=== PATIENT | female | born 1975 | race American Indian/Alaskan Native ===

== ENCOUNTER 2017-03-23 21:02 | Emergency (ER) | payer OTHER ==
[2017-03-23 21:05] VITALS: BMI 25.4
[2017-03-23 21:08] VITALS: BP 128/88; PULSE 89; RESP 16; TEMP 98.6; O2SAT 100
[2017-03-23] MEDS ORDERED: TDAP Vaccine 0.5 mL Syr IM ONE (22:27)
--- NOTE | 2017-03-23 22:28 | ED PDOC ---
Arrival/HPI <Eris Napier - Last Filed: 03/23/17 22:39> - General Historian: Patient - History of Present Illness Time/Duration: Prior to Arrival Symptom Onset: Sudden Symptom Course: Unchanged Activities at Onset: Light Context: Home <Caryl Pickett PA-C - Last Filed: 03/24/17 01:37> - General Chief Complaint: Abnormal Skin Integrity Time Seen by Provider: 03/23/17 22:27 - History of Present Illness Narrative History of Present Illness (Text): 03/23/17 22:27 41 year old female who presents to the Emergency department complaining of 3 lacerations to her right hand prior to arrival while opening a window. Patient denies any weakness/numbness/tingling in the extremity, decreased range of motion, other injuries, or any other complaints. (Caryl Pickett PA-C) Past Medical History - Provider Review Nursing Documentation Reviewed: Yes - Infectious Disease Hx of Infectious Diseases: None - Psychiatric Hx Psychophysiologic Disorder: No Hx Anxiety: No Hx Bipolar Disorder: No Hx Depression: No Hx Emotional Abuse: No Hx Hallucinations: No Hx Panic Disorder: No Hx Post Traumatic Stress Disorder: No Hx Psychosis: No Hx Physical Abuse: No Hx Schizophrenia: No Hx Sexual Abuse: No Hx Substance Use: No - Surgical History Hx Cholecystectomy: Yes Other/Comment: fibroid tumor removal. - Anesthesia Hx Anesthesia: Yes Hx Anesthesia Reactions: No Hx Malignant Hyperthermia: No - Suicidal Assessment Feels Threatened In Home Enviroment: No <Caryl Pickett PA-C - Last Filed: 03/24/17 01:37> Family/Social History - Physician Review Nursing Documentation Reviewed: Yes Family/Social History: Unknown Family HX Smoking Status: Never Smoked Hx Alcohol Use: No Hx Substance Use: No <Caryl Pickett PA-C - Last Filed: 03/24/17 01:37> Allergies/Home Meds <Eris Napier - Last Filed: 03/23/17 22:39> <Caryl Pickett PA-C - Last Filed: 03/24/17 01:37> Allergies/Adverse Reactions: Allergies berries Allergy (Uncoded 02/22/15 14:41) ANAPHYLAXIS nuts Allergy (Uncoded 03/23/17 21:18) ANAPHYLAXIS tomato sauce Allergy (Uncoded 02/22/15 14:41) ANAPHYLAXIS Review of Systems - Physician Review All systems were reviewed & negative as marked: Yes - Review of Systems Constitutional: Normal Eyes: Normal ENT: Normal Respiratory: Normal. absent: SOB, Cough Cardiovascular: Normal. absent: Chest Pain Gastrointestinal: Normal. absent: Abdominal Pain, Diarrhea, Nausea, Vomiting Genitourinary Female: Normal Musculoskeletal: Normal. absent: Back Pain, Neck Pain Skin: Laceration Neurological: Normal Endocrine: Normal Hemo/Lymphatic: Normal Psychiatric: Normal <Caryl Pickett PA-C - Last Filed: 03/24/17 01:37> Physical Exam Vital Signs Reviewed: Yes Temperature: Afebrile Blood Pressure: Normal Pulse: Regular Respiratory Rate: Normal Appearance: Positive for: Well-Appearing, Non-Toxic, Comfortable Pain Distress: Mild Mental Status: Positive for: Alert and Oriented X 3 - Systems Exam Head: Present: Atraumatic, Normocephalic Pupils: Present: PERRL Extroacular Muscles: Present: EOMI Conjunctiva: Present: Normal Mouth: Present: Moist Mucous Membranes Neck: Present: Normal Range of Motion Upper Extremity: Present: Normal ROM, NORMAL PULSES, Neurovascularly Intact, Capillary Refill < 2s, Other (1 cm to laceration to proximal volar aspect of right 3rd digit, 2 cm laceration to volar aspect of right 2nd MCP, 2 cm L- shaped superficial laceration to volar aspect of right 1st MCP). No: Cyanosis, Edema, Tenderness, Swelling, Erythema, Deformity Lower Extremity: Present: Normal Inspection. No: Edema Neurological: Present: GCS=15, CN II-XII Intact, Speech Normal Skin: Present: Warm, Dry, Normal Color. No: Rashes Psychiatric: Present: Alert, Oriented x 3, Normal Insight, Normal Concentration , Anxious <Caryl Pickett PA-C - Last Filed: 03/24/17 01:37> Vital Signs Temp Pulse Resp BP Pulse Ox 03/23/17 21:02 98.6 F 89 16 128/88 100 Medical Decision Making <Eris Napier - Last Filed: 03/23/17 22:39> <Caryl Pickett PA-C - Last Filed: 03/24/17 01:37> ED Course and Treatment: 03/23/17 22:27 Impression: 41 year old female complaining of 3 lacerations to right hand prior to arrival. Differential Diagnosis included but are not limited to: laceration Plan: -- Laceration repair -- Tetanus vaccination -- Reassess and disposition Progress Notes: The wound is R hand. The wound was copiously irrigated with normal saline. The wound was prepped and draped in the normal sterile fashion. The wound was explored for foreign bodies and none were found. The wound was anesthetised using lidocaine. The edges were reapproximated using 5, 5-0 prolene sutures by [employer]. Bleeding was well controlled and the patient tolerated the procedure well. Clean dressing applied. Patient instructed on proper wound care. Advised to keep the wound clean, dry and covered. Instructed to follow up with primary care physician in 2 days without fail for wound check. Advised to have sutures removed after 7 days. Return to the emergency room at any time for any new or worsening symptoms. Patient states she fully agrees with and understands discharge instructions. States that she agrees with the plan and disposition. Verbalized and repeated discharge instructions and plan. I have given the patient opportunity to ask any additional questions. (Caryl Pickett PA-C) - Medication Orders Current Medication Orders: Discontinued Medications Tetanus/Reduced Diphtheria/Acell Pertussis (Boostrix Vaccine Inj) 0.5 ml IM .ONCE ONE Stop: 03/23/17 22:28 Last Admin: 03/23/17 23:10 Dose: 0.5 ml - PA / EXTRACTOR MACHINE OPERATOR / Resident Statement LATISHA has reviewed & agrees with the documentation as recorded. LATISHA has examined the patient and agrees with the treatment plan. <Eris Napier - Last Filed: 03/23/17 22:39> - PA / EXTRACTOR MACHINE OPERATOR / Resident Statement LATISHA has reviewed & agrees with the documentation as recorded. - Scribe Statement The provider has reviewed the documentation as recorded by the Scribe <Caryl Pickett PA-C - Last Filed: 03/24/17 01:37> - Scribe Statement Yanet Gale Provider Scribe Attestation: All medical record entries made by the Scribe were at my direction and personally dictated by me. I have reviewed the chart and agree that the record accurately reflects my personal performance of the history, physical exam, medical decision making, and the department course for this patient. I have also personally directed, reviewed, and agree with the discharge instructions and disposition. (Caryl Pickett PA-C) Disposition/Present on Arrival <Eris Napier - Last Filed: 03/23/17 22:39> - Present on Arrival Any Indicators Present on Arrival: No History of DVT/PE: No History of Uncontrolled Diabetes: No Urinary Catheter: No History of Decub. Ulcer: No History Surgical Site Infection Following: None - Disposition Have Diagnosis and Disposition been Completed?: Yes Disposition Time: 22:27 Patient Plan: Discharge <Caryl Pickett PA-C - Last Filed: 03/24/17 01:37> - Disposition Diagnosis: Hand laceration Disposition: HOME/ ROUTINE Condition: STABLE Discharge Instructions (ExitCare): Care For Your Stitches (ED), Laceration (ED) Print Language: ERITREAN Additional Instructions: Thank you for letting us take care of you today. You were treated for hand laceration. The emergency medical care you received today was directed at your acute symptoms. Have sutures removed after 7 days. Return to the Emergency Department if your symptoms worsen, do not improve, or if you have any other problems. Please contact your doctor in 2 days for re-evaluation and follow up. Bring any paperwork you were given at discharge with you along with any medications you are taking to your follow up visit. Our treatment cannot replace ongoing medical care by a primary care provider (PCP) outside of the emergency department. Thank you for allowing the [facility] team to be part of your care today. Referrals: Farhad Dixon MD [Primary Care Provider] - Follow up with primary Forms: Rosalind (Northern Irish), WORK NOTE
== END 2017-03-23 23:20 | disposition home or self-care (01) ==
LOC: ED 21:02
DX: S61.411A Laceration without foreign body of right hand, initial encounter (principal); W45.8XXA Other foreign body or object entering through skin, initial encounter; Z23 Encounter for immunization

== ENCOUNTER 2017-04-10 14:41 | Emergency (ER) | payer OTHER ==
[2017-04-10 15:07] VITALS: PULSE 99; RESP 18; TEMP 98.5; O2SAT 100; BMI 26.4
--- NOTE | 2017-04-10 15:22 | ED PDOC ---
Arrival/HPI - General Historian: Patient - History of Present Illness Time/Duration: > week Symptom Course: Unchanged <Jennifer Ford - Last Filed: 04/10/17 16:15> <Ti Boogie - Last Filed: 04/10/17 22:37> - General Chief Complaint: Finger,Hand,&Wrist Time Seen by Provider: 04/10/17 15:17 - History of Present Illness Narrative History of Present Illness (Text): 04/10/17 15:23 42F w/no sig PMH evaluated for swelling of right first digit. Pt reports that 2 wks ago, she cut her hand on a wine bottle, had sutures placed, which were removed by PMD a week ago. Pt is concerned that her 1st digit of her right hand is still swollen with pain upon flexion. Pt has not taken any medications, no alleviating factors identified. Pain is mild, aggravated by movement/flexion , non radiating. Pt is without other complaints. PMH: Denies PSH: cholecystectomy, fibroid excision x 3, endometriosis surgery All: Nuts SH: Social ETOH use, denies tobacco or illicit drug use PMD: Erickson Dixon (Jennifer Ford) Past Medical History - Provider Review Nursing Documentation Reviewed: Yes - Infectious Disease Hx of Infectious Diseases: None - Tetanus Immunization Tetanus Immunization: Up to Date - Past Medical History Past Medical History: No Previous - Psychiatric Hx Psychophysiologic Disorder: No Hx Anxiety: No Hx Bipolar Disorder: No Hx Depression: No Hx Emotional Abuse: No Hx Hallucinations: No Hx Panic Disorder: No Hx Post Traumatic Stress Disorder: No Hx Psychosis: No Hx Physical Abuse: No Hx Schizophrenia: No Hx Sexual Abuse: No Hx Substance Use: No - Surgical History Hx Cholecystectomy: Yes Other/Comment: fibroid tumor removal. - Anesthesia Hx Anesthesia: Yes Hx Anesthesia Reactions: No Hx Malignant Hyperthermia: No - Suicidal Assessment Feels Threatened In Home Enviroment: No <Jennifer Ford - Last Filed: 04/10/17 16:15> Family/Social History - Physician Review Nursing Documentation Reviewed: Yes Family/Social History: No Known Family HX Smoking Status: Never Smoked Hx Alcohol Use: Yes Frequency of alcohol use: Socially Hx Substance Use: No <Jennifer Ford - Last Filed: 04/10/17 16:15> Allergies/Home Meds <Jennifer Ford - Last Filed: 04/10/17 16:15> <Ti Boogie - Last Filed: 04/10/17 22:37> Allergies/Adverse Reactions: Allergies berries Allergy (Uncoded 02/22/15 14:41) ANAPHYLAXIS nuts Allergy (Uncoded 03/23/17 21:18) ANAPHYLAXIS tomato sauce Allergy (Uncoded 02/22/15 14:41) ANAPHYLAXIS Home Medications: Home Meds Medication Instructions Recorded Confirmed No Known Home Med 04/10/17 04/10/17 Review of Systems - Physician Review All systems were reviewed & negative as marked: Yes - Review of Systems Constitutional: Normal Eyes: Normal ENT: Normal Respiratory: Normal Cardiovascular: Normal Gastrointestinal: Normal Musculoskeletal: Normal Skin: Laceration (well healed) Neurological: Normal <Jennifer Ford - Last Filed: 04/10/17 16:15> Physical Exam Vital Signs Reviewed: Yes Temperature: Afebrile Blood Pressure: Normal Pulse: Regular Respiratory Rate: Normal Appearance: Positive for: Well-Appearing, Non-Toxic, Comfortable Pain Distress: None Mental Status: Positive for: Alert and Oriented X 3 - Systems Exam Head: Present: Atraumatic, Normocephalic Extroacular Muscles: Present: EOMI Conjunctiva: Present: Normal Mouth: Present: Moist Mucous Membranes Nose (External): Present: Atraumatic Neck: Present: Normal Range of Motion Respiratory/Chest: Present: Clear to Auscultation, Good Air Exchange. No: Respiratory Distress, Accessory Muscle Use Cardiovascular: Present: Regular Rate and Rhythm, Normal S1, S2. No: Murmurs Abdomen: Present: Distention, Normal Bowel Sounds. No: Tenderness, Peritoneal Signs Upper Extremity: Present: Tenderness (of 1st digit of right hand), Swelling (of 1st digit of right hand), Other (no fluctance, erythema or signs of infection). No: Cyanosis, Edema Lower Extremity: Present: Normal Inspection. No: Edema Neurological: Present: GCS=15, CN II-XII Intact, Speech Normal Skin: Present: Warm, Dry, Normal Color. No: Rashes Psychiatric: Present: Alert, Oriented x 3, Normal Insight, Normal Concentration <Jennifer Ford - Last Filed: 04/10/17 16:15> Vital Signs Temp Pulse Resp BP Pulse Ox 04/10/17 16:20 18 118/70 04/10/17 15:06 98.5 F 99 H 18 101/63 100 Medical Decision Making <Jennifer Ford - Last Filed: 04/10/17 16:15> <Ti Boogie - Last Filed: 04/10/17 22:37> ED Course and Treatment: 04/10/17 15:29 Pt concerned regarding healing process s/p laceration repair, provided reassurance regarding healing process (Jennifer Ford) significant dilated with the resident. Patient has a small contusion versus subungual hematoma. X-ray is negative for any fracture. Also on the differential is paronychia, but no drainage. 04/10/17 22:34 (Ti Boogie) - PA / SUPERVISOR INTELLIGENCE ANALYST / Resident Statement MD/DO has examined the patient and agrees with the treatment plan. <Ti Boogie - Last Filed: 04/10/17 22:37> Disposition/Present on Arrival - Present on Arrival Any Indicators Present on Arrival: No History of DVT/PE: No History of Uncontrolled Diabetes: No Urinary Catheter: No History of Decub. Ulcer: No History Surgical Site Infection Following: None - Disposition Have Diagnosis and Disposition been Completed?: Yes Disposition Time: 15:57 Patient Plan: Discharge <Jennifer Ford - Last Filed: 04/10/17 16:15> - Present on Arrival Any Indicators Present on Arrival: No History of DVT/PE: No History of Uncontrolled Diabetes: No Urinary Catheter: No History of Decub. Ulcer: No History Surgical Site Infection Following: None - Disposition Have Diagnosis and Disposition been Completed?: Yes <Ti Boogie - Last Filed: 04/10/17 22:37> - Disposition Diagnosis: Swelling of finger joint of right hand Disposition: HOME/ ROUTINE Condition: STABLE Additional Instructions: Follow up with your primary care physician if symptoms do not improve within 2- 4 weeks, they may want you to see a hand specialist. Referrals: Farhad Dixon MD [Primary Care Provider] - Follow up with primary Forms: [employer] (Bahamian)
[2017-04-10 16:38] VITALS: BP 118/70
== END 2017-04-10 16:20 | disposition home or self-care (01) ==
LOC: ED 14:41
DX: M25.441 Effusion, right hand (principal)

== ENCOUNTER 2017-09-05 17:01 | Emergency (ER) | payer OTHER ==
[2017-09-05 17:02] VITALS: BMI 26.4
[2017-09-05 17:20] VITALS: TEMP 98.6
--- NOTE | 2017-09-05 17:39 | ED PDOC ---
Arrival/HPI - General Chief Complaint: Syncope Time Seen by Provider: 09/05/17 17:20 Historian: Patient - History of Present Illness Narrative History of Present Illness (Text): 09/05/17 17:36 42yo female with no PMhx who present to ED for evaluation of lightheadedness and chest tightness. Patient states she had an episode of vomiting after eating out 2days ago. Had syncopal episode while she was on a flight yesterday. States she came to ED for evaluation. She however reported episode of lightheadedness this morning that lasted for few minutes. Also report chest tightness. Stats is not pain, but it feels like she pulled a muscle while lifting her luggage yesterday. she did not take any medication. Admits to SOB for the past 3weeks with exertion. Denies cough, recent surgery, calf pain, diaphoresis, OCP use, focal weakness, headache, visual change, any other complaint. Past Medical History - Provider Review Nursing Documentation Reviewed: Yes - Infectious Disease Hx of Infectious Diseases: None - Tetanus Immunization Tetanus Immunization: Up to Date - Past Medical History Past Medical History: No Previous - Psychiatric Hx Psychophysiologic Disorder: No Hx Anxiety: No Hx Bipolar Disorder: No Hx Depression: No Hx Emotional Abuse: No Hx Hallucinations: No Hx Panic Disorder: No Hx Post Traumatic Stress Disorder: No Hx Psychosis: No Hx Physical Abuse: No Hx Schizophrenia: No Hx Sexual Abuse: No Hx Substance Use: No - Surgical History Hx Cholecystectomy: Yes Other/Comment: fibroid tumor removal. - Anesthesia Hx Anesthesia: Yes Hx Anesthesia Reactions: No Hx Malignant Hyperthermia: No - Suicidal Assessment Feels Threatened In Home Enviroment: No Family/Social History - Physician Review Nursing Documentation Reviewed: Yes Family/Social History: Unknown Family HX Smoking Status: Never Smoked Hx Alcohol Use: Yes Hx Substance Use: No Allergies/Home Meds Allergies/Adverse Reactions: Allergies berries Allergy (Uncoded 09/05/17 17:16) ANAPHYLAXIS nuts Allergy (Uncoded 09/05/17 17:16) ANAPHYLAXIS tomato sauce Allergy (Uncoded 09/05/17 17:16) ANAPHYLAXIS Home Medications: Home Meds Medication Instructions Recorded Confirmed No Known Home Med 04/10/17 09/05/17 Review of Systems - Physician Review All systems were reviewed & negative as marked: Yes - Review of Systems Constitutional: Normal Eyes: Normal ENT: Normal Respiratory: SOB. absent: Cough, Sputum, Wheezing Cardiovascular: Chest Pain. absent: Palpitations, Edema, Calf Pain Gastrointestinal: Normal Genitourinary Female: Normal Musculoskeletal: Normal Skin: Normal Neurological: Dizziness. absent: Headache, Focal Weakness, Gait Changes, Speech Changes, Facial Droop Endocrine: Normal Hemo/Lymphatic: Normal Psychiatric: Normal Physical Exam Vital Signs Reviewed: Yes Vital Signs Temp Pulse Resp BP Pulse Ox 09/05/17 21:03 85 17 124/78 100 09/05/17 19:00 89 18 126/82 100 09/05/17 17:53 94 H 18 124/79 98 09/05/17 17:16 98.6 F 105 H 16 126/82 100 Temperature: Afebrile Blood Pressure: Normal Pulse: Tachycardic Respiratory Rate: Normal Appearance: Positive for: Well-Appearing, Non-Toxic, Comfortable Pain Distress: None Mental Status: Positive for: Alert and Oriented X 3 - Systems Exam Head: Present: Atraumatic, Normocephalic Pupils: Present: PERRL Extroacular Muscles: Present: EOMI Conjunctiva: Present: Normal Mouth: Present: Moist Mucous Membranes Neck: Present: Normal Range of Motion Respiratory/Chest: Present: Clear to Auscultation, Good Air Exchange. No: Respiratory Distress, Accessory Muscle Use, Wheezes, Decreased Breath Sounds, Rales, Retracting, Rhonchi, Tachypneic Cardiovascular: Present: Regular Rate and Rhythm, Normal S1, S2. No: Murmurs Abdomen: Present: Normal Bowel Sounds. No: Tenderness, Distention, Peritoneal Signs Back: Present: Normal Inspection Upper Extremity: Present: Normal Inspection. No: Cyanosis, Edema Lower Extremity: Present: Normal Inspection. No: Edema Neurological: Present: GCS=15, CN II-XII Intact, Speech Normal Skin: Present: Warm, Dry, Normal Color. No: Rashes Psychiatric: Present: Alert, Oriented x 3, Normal Insight, Normal Concentration Medical Decision Making ED Course and Treatment: 09/05/17 22:30 PT in ED for stated history. She was hemodynamically stable in no distress. Lab was unremarkable. BS of 69 was noted and DW the pt. She was given Juice in ED. Advised to f/u with her PMD for further outpt evaluation. EKG NSR @89bpm - Lab Interpretations Lab Results: 09/05/17 17:37 09/05/17 19:39 Lab Results 09/05/17 19:39: Sodium 139, Potassium 3.7, Chloride 99, Carbon Dioxide 29, Anion Gap 15, BUN 10, Creatinine 0.7, Est GFR ( Amer) > 60, Est GFR (Non- Af Amer) > 60, Random Glucose 67 L, Calcium 9.9, Magnesium 1.9, Total Bilirubin 0.3, AST 22, ALT 35, Alkaline Phosphatase 84, Lactate Dehydrogenase 507, Total Creatine Kinase 66, Troponin I < 0.01, NT-Pro-B Natriuret Pep 26.5, Total Protein 7.4, Albumin 4.2, Globulin 3.2, Albumin/Globulin Ratio 1.3 09/05/17 17:53: POC Glucose (mg/dL) 77 09/05/17 17:37: Urine Opiates Screen Negative, Urine Methadone Screen Negative, Ur Barbiturates Screen Negative, Ur Phencyclidine Scrn Negative, Ur Amphetamines Screen Negative, U Benzodiazepines Scrn Negative, U Oth Cocaine Metabols Negative, U Cannabinoids Screen Negative 09/05/17 17:37: PT 12.0, INR 1.05, APTT 33.8, D-Dimer, Quantitative < 200 09/05/17 17:37: Urine Color Yellow, Urine Appearance Clear, Urine pH 6.0, Ur Specific [place] >= 1.030, Urine Protein Negative, Urine Glucose (UA) Negative, Urine Ketones Trace H, Urine Blood Negative, Urine Nitrate Negative, Urine Bilirubin Negative, Urine Urobilinogen 0.2, Ur Leukocyte Esterase Negative 09/05/17 17:37: WBC 4.2 L, RBC 4.72, Hgb 13.9, Hct 42.0, MCV 89.0, MCH 29.4, MCHC 33.1, RDW 13.6, Plt Count 290, MPV 9.6, Gran % 58.2, Lymph % (Auto) 35.5 H , [place] % (Auto) 5.2, Eos % (Auto) 0.9 L, Baso % (Auto) 0.2, Gran # 2.46, Lymph # (Auto) 1.5, [place] # (Auto) 0.2, Eos # (Auto) 0.0, Baso # (Auto) 0.01 - RAD Interpretation Radiology Orders: 09/05/17 17:30 CHEST PORTABLE [RAD] Stat Disposition/Present on Arrival - Present on Arrival Any Indicators Present on Arrival: No History of DVT/PE: No History of Uncontrolled Diabetes: No Urinary Catheter: No History of Decub. Ulcer: No - Disposition Have Diagnosis and Disposition been Completed?: Yes Diagnosis: Lightheadedness, Chest pain Disposition: HOME/ ROUTINE Disposition Time: 20:45 Patient Plan: Discharge Condition: STABLE Discharge Instructions (ExitCare): Dizziness, Nonvertigo, (DC), Chest Pain (ED) Additional Instructions: Follow up with your doctor Return to ED for any new symptoms Referrals: [facility], [Non-Staff] - Follow up with primary [facility] [place] [Outside] - Follow up with primary Forms: [employer] ([place]irati)
[2017-09-05 18:05] LABS: URINE BILIRUBIN NEGATIVE (NEGATIVE); URINE BLOOD NEGATIVE (NEGATIVE); URINE GLUCOSE (UA) NEGATIVE (NEGATIVE); URINE LEUKOCYTE ESTERASE NEGATIVE Leu/uL (NEGATIVE); URINE NITRATE NEGATIVE (NEGATIVE); URINE PROTEIN NEGATIVE mg/dL (<30 mg/dL); URINE UROBILINOGEN 0.2 E.U./dL (<1 E.U./dL)
[2017-09-05 18:09] LABS: URINE APPEARANCE CLEAR (CLEAR); URINE COLOR YELLOW (YELLOW)
[2017-09-05 18:32] LABS: BARBITURATES, UR NEGATIVE (NEGATIVE); BENZODIAZEPINES, UR NEGATIVE (NEGATIVE); OPIATES, UR NEGATIVE (NEGATIVE); PHENCYCLIDINE, UR NEGATIVE (NEGATIVE)
[2017-09-05 19:57] VITALS: O2SAT 100
[2017-09-05 20:12] LABS: BASO # 0.01 K/mm3 (0.0-2.0); BASO % 0.2 % (0.0-3.0); EOS % 0.9 % (1.5-5.0); GRAN # 2.46 (1.4-6.5); GRAN % 58.2 % (50.0-68.0); HEMOGLOBIN 13.9 g/dL (12.0-16.0); LYMPH # 1.5 (1.2-3.4); LYMPH % 35.5 % (22.0-35.0); MEAN CORPUSCULAR HEMOGLOBIN 29.4 pg (25.0-35.0); MEAN CORPUSCULAR HGB CONC 33.1 g/dl (31.0-37.0); MEAN PLATELET VOLUME 9.6 fl (7.0-11.0); MONO # 0.2 (0.1-0.6); MONO % 5.2 % (1.0-6.0); RBC 4.72 10^6/uL (3.5-6.1); RED CELL DISTRIBUTION WIDTH 13.6 % (11.5-14.5); WHITE BLOOD COUNT 4.2 10^3/ul (4.5-11.0)
[2017-09-05 20:29] LABS: ALB/GLOB RATIO 1.3 (1.1-1.8); ALBUMIN 4.2 g/dL (3.0-4.8); ALT/SGPT 35 U/L (7-56); AST/SGOT 22 U/L (14-36); BLOOD UREA NITROGEN 10 mg/dL (7-21); CALCIUM 9.9 mg/dL (8.4-10.5); GFR AFRICAN-AMERICAN > 60; GFR NON-AFRICAN AMERICAN > 60; MAGNESIUM 1.9 mg/dL (1.7-2.2)
[2017-09-05 20:31] LABS: INR 1.05 (0.93-1.08); PARTIAL THROMBOPLASTIN TIME 33.8 Seconds (25.1-36.5)
[2017-09-05 20:35] LABS: D DIMER < 200 ng/mL (0-243)
[2017-09-05 20:40] LABS: B-TYPE NATRIURETIC PEPTIDE 26.5 pg/mL (0-450); TROPONIN I < 0.01 ng/mL
[2017-09-05 21:04] VITALS: BP 124/78; PULSE 85; RESP 17
--- NOTE | 2017-09-06 09:43 | RAD ---
HISTORY: Chest pain COMPARISON: No prior. FINDINGS: LUNGS: The lungs are well inflated and clear. PLEURA: No significant pleural effusion identified, no pneumothorax apparent. CARDIOVASCULAR: Normal. OSSEOUS STRUCTURES: No significant abnormalities. VISUALIZED UPPER ABDOMEN: Normal. OTHER FINDINGS: None. IMPRESSION: No active pulmonary disease.
--- NOTE | 2017-09-06 10:58 | CARD ---
APPROVED REPORT EKG Measurement Heart [id number] IN [id number] <Conclusion> Normal sinus rhythm Normal ECG
== END 2017-09-05 21:04 | disposition home or self-care (01) ==
LOC: ED 17:01
DX: R42 Dizziness and giddiness (principal); R07.9 Chest pain, unspecified